=== PATIENT | female | born 1995 | race Caucasian/White ===

== ENCOUNTER 2020-02-07 05:38 | Observation (INO) ==
--- NOTE | 2020-02-02 11:16 | Anesthesiology Consultation ---
Date of Service February 02, 2020 Assessment & Plan Chart Review Chart Review: Acceptable Risk for Surgery and Patient NOT seen in Pre Admission Testing Consults Requested none ASA ASA1 Proposed Anesthesia Anesthesia Type: General Regional History Surgery Operation Date: 02/07/20 07:00 Proposed Procedures p Open Reduction Internal Fixation Malleolus Fracture, - Harrison Parrish MD s Tibial Intramedullary Nail Right Leg - Harrison Parrish MD Height/Weight Height: 5 ft 7.5 in Weight: 68.039 kg Allergies Allergy/AdvReac Type Severity Reaction Status Date / Time No Known Allergies Allergy Unverified 02/02/20 09:03 Medications Home Medications Medication Instructions Recorded Confirmed Last Taken acetaminophen [Tylenol Extra 1,000 mg PO QID PRN 01/29/20 02/02/20 01/28/20 22:00 Strength] multivitamin 1 tab PO QAM 01/29/20 02/02/20 01/28/20 enoxaparin [Lovenox] 40 mg SUBCUT BID 02/02/20 02/02/20 Unknown Past Medical History Medical History Fracture, tibia RT TIBIA/ANKLE FRACTURE (CURRENT INJURY) Hypothyroidism "VERY MILD" (TAKES NO MEDICATIONS) BEING MONITORED FROM PCP Exercise / Class Metabolic Activity 1 > 8 Run/Swim/Ski/Tennis Past Family History Family History Other No significant family history Past Surgical History Surgical History No significant past surgical history Past Anesthesia History No Hx of Anesthesia Complications and No Family Hx of Anesthesia Complications History of PONV No Hx of PONV and No Hx of Motion Sickness Social History Smoking Status: Never smoker Do You Dip or Chew Tobacco: No Hx Alcohol Use: No Hx Substance Use: No
[2020-02-07] MEDS ORDERED: CEFAZOLIN 2000MG 2,000 MG/15 ML SYR IV SCH (06:00)
[2020-02-07] MEDS ORDERED: LR 15ML/HR IV SCH (06:00)
[2020-02-07] MEDS ORDERED: LIDOCAINE HCL 2% 2 ML VIAL/AMP(20MG/ML) INFIL ONE (06:30)
[2020-02-07] MEDS ORDERED: PROPOFOL IV EMULSION 10 MG/ML 20 ML VIAL IV ONE ×2 (06:30→09:18)
[2020-02-07] MEDS ORDERED: GLYCOPYRROLATE 0.2 MG/ML VIAL ONE (06:30)
[2020-02-07] MEDS ORDERED: ONDANSETRON INJ 2 MG/ML 2 ML VIAL ONE (06:30)
[2020-02-07] MEDS ORDERED: ROCURONIUM BROMIDE 10 MG/ML 5 ML VIAL IV ONE (06:30)
[2020-02-07] MEDS ORDERED: DEXAMETHASONE SOD INJ 4 MG/ML VIAL ONE (06:30)
[2020-02-07] MEDS ORDERED: NEOSTIGMINE METHYLSULFATE 5 MG/5 ML SYR ONE (06:30)
[2020-02-07] MEDS ORDERED: fentaNYL citrate 100 MCG/2 ML VIAL ONE (06:31)
[2020-02-07] MEDS ORDERED: MIDAZOLAM HCL 1 MG/ML 2ML VIAL ONE ×2 (06:31→06:51)
[2020-02-07] MEDS ORDERED: EPINEPHrine INJ 1 MG/ML AMP ONE (06:34)
[2020-02-07] MEDS ORDERED: BUPIVACAINE 0.5 % 5 MG/1 ML MPF 30ML VIAL ONE (06:35)
[2020-02-07] MEDS ORDERED: LIDOCAINE/EPINEPHRINE 1% 20 ML VIAL ONE (06:35)
[2020-02-07] MEDS ORDERED: SODIUM CHLORIDE 0.9% INJ 10 ML VIAL ONE (06:46)
--- NOTE | 2020-02-07 06:55 | History & Physical Bridge Note ---
Date of Service February 07, 2020 History & Physical Bridge Note I have examined the patient, reviewed the History & Physical and in the interval since the performance of the History & Physical I have noted the following changes of clinical significance: no changes noted
[2020-02-07] MEDS ORDERED: ONDANSETRON INJ 2 MG/ML 2 ML VIAL IV PRN ×2 (07:15→13:26)
[2020-02-07] MEDS ORDERED: PROMETHAZINE HCL 6.25 MG in SODIUM CHLORIDE 0.9% 50 ML IV PRN (07:15)
[2020-02-07] MEDS ORDERED: ATROPINE SULFATE 0.1 MG/ML 10ML SYR IV PRN (07:15)
[2020-02-07] MEDS ORDERED: LABETALOL HCL IV 5 MG/ML 20ML IV PRN (07:15)
[2020-02-07] MEDS ORDERED: ROPIVACAINE 0.5% 5 MG/ML 30 ML VIAL ONE (07:30)
[2020-02-07] MEDS ORDERED: CEFAZOLIN 250 MG/ML 1 GM VIAL ONE (09:25)
[2020-02-07] MEDS ORDERED: CEFAZOLIN IV ONE (09:50)
[2020-02-07] MEDS ORDERED: PEDIATRIC DILUENT IV ONE (09:50)
--- NOTE | 2020-02-07 12:11 | Operative Report ---
Post Operative Report Pre & Post Diagnosis Operation Date: 02/07/20 07:00 Pre-Op Diagnosis: Right Tibia Fracture, Posterior Malleolus Fracture Post-Op Diagnosis: Right Tibia Fracture, Posterior Malleolus Fracture I identified the patient and participated in the time-out.: Yes Procedure Operation Date: 02/07/20 07:00 Actual Procedures p Open Reduction Internal Fixation Right Malleolus Fracture(Right) - Harrison Parrish MD s Tibial Intramedullary Nail Right Leg(Right) - Harrison Parrish MD Surgeon Harrison Parrish M.D. Citizenship Instructor Ericka Alan PA-C, no fellow available Estimated Blood Loss 25 Findings Consistent with Post-Op Diagnosis Specimens None Anesthesia Type General Regional Complications none Description of Procedure Patient was taken to the operating room, placed under general anesthesia, given 2gm IV Ancef prior to her initial procedure and then an additional 500mg IV Ancef prior to the IM rodding of her tibia. time out performed, prepped and draped in routine sterile fashion. I was present during the entire case and assisted with positioning, tissue retraction, fracture reduction, implantation of hardware, closure and dressings. Please see Dr. Parrish's operative report for further details. Patient was awakened and taken to the recovery room in stable condition. I attest to the content of the Intraoperative Record and any orders documented therein. Any exceptions are noted below.
--- NOTE | 2020-02-07 12:21 | Operative Report ---
Post Operative Report Pre & Post Diagnosis Operation Date: 02/07/20 07:00 Pre-Op Diagnosis: Right Tibia Fracture, Posterior Malleolus Fracture Post-Op Diagnosis: Right Tibia Fracture, Posterior Malleolus Fracture I identified the patient and participated in the time-out.: Yes Procedure Operation Date: 02/07/20 07:00 Actual Procedures p Open Reduction Internal Fixation Right Malleolus Fracture(Right) - Harrison Parrish MD s Tibial Intramedullary Nail Right Leg(Right) - Harrison Parrish MD Surgeon Harrison Parrish MD Inserting Machine Operator Ericka Alan PA-C, no fellow available Estimated Blood Loss 25 Findings Consistent with Post-Op Diagnosis Specimens None Drains None Anesthesia Type General Regional Complications none Disposition Accompanied Patient To Recovery: No Disposition: Recovery Room Indications Patient is 24 years old. She sustained a fracture of her right tibia proximally 1 week ago playing volleyball. This is a oblique fracture of the distal third of the tibia with a component extending into the ankle joint posterior malleolus nondisplaced. Proximal fibular fracture. Upon presentation she had fracture blisters and swelling. Surgery was delayed about 5 days to allow the swelling to subside and blisters to heal. She was seen in the office yesterday. Her fracture blisters are largely resolved and no new blisters have occurred. Her swelling is diminished and skin wrinkles are present. An ultrasound was done to rule out DVT which was negative. She is on Lovenox. Last dose was Thursday evening. Description of Procedure Informed consent obtained. Patient identified. She identified the operative site as of the right leg. I marked with my initials. A preop surgical timeout was performed and a preop dose of IV antibiotics was given. She was taken to the operating room positioned prone after administration of the general anesthetic and nerve block. A tourniquet was applied to her thigh. The right leg was pre-scrubbed and then prepped and draped in usual sterile fashion. DVT prophylaxis with early mobility and Lovenox. Mechanical devices. Bony prominences were inspected and padded. Bone foam was inserted underneath her ankles. Her knees were padded. Limb exsanguinated with the Esmarch. Tourniquet inflated 250 mmHg. A incision just posterior to the fibula was made about 10 cm in length. This began at the level of the ankle joint and proceeded proximally. Blunt dissection was performed down to subcutaneous tissues. Transversing veins were cauterized. The sural nerve was identified preserved and protected. The fascia posterior to the peroneal tendons was opened in line with the incision. The peroneals were retracted anterior and the flexor hallucis longus fascia was opened on its lateral aspect and the muscle was retracted medialward to expose the posterior tibia. Cautery was used proximally to identify the apex of the fracture site which was anatomically aligned. I used a hypodermic needle to identify the ankle joint fluoroscopically and I also placed a pin into the fracture to hold it reduced. I then introduced a guidepin for the 4.5 cannulated screws and adjusted it x2 to the appropriate position as distal as possible. This was overreamed and a screw with washer was inserted providing excellent purchase. The first screw was lateral and inserted a second screw in a likewise fashion more medial. These were a unicortical screws with short thread lengths crossing the fracture site. The hardware was in good position and the fracture was anatomically reduced. Tourniquet was let down after 50 minutes of inflation. Meticulous hemostasis was performed without significant bleeding. Copious irrigation was performed. The skin was closed with 3-0 Vicryl and a 4-0 Monocryl subcuticular stitch completely buried. This was then covered with a sterile OpSite and the sterile field was broken down. She was turned to the supine position. The surgeon and railway yard assistant re-scrubbed reprepped the ankle and prepped and draped again. The circulating nurse and back table remained sterile. The OpSite was removed. Another timeout was performed and another dose of IV antibiotics was given. She had a Landeros catheter inserted which was then removed at the end of the case. Bony prominences again inspected and padded. The tourniquet was not inflated. A midline longitudinal incision was made over the patellar tendon. I initially split the patellar tendon longitudinally based upon what I felt was the proper injury site which turned out to be a little bit more medial in the patella block to me from proper positioning. I then made a medial parapatellar incision but did not open the ankle joint. I then re-identified the correct starting point and inserted the guidepin. This was overreamed. The guide rashawn was then inserted. The fracture was difficult to reduce anatomically and closed fashion despite several attempts. I then went ahead and made a 5 cm incision over the fracture site centered over the lateral crest of the tibia. The fascia was incised and without any significant periosteal stripping other than what was needed I was able to insert an alligator clamp across the fracture site just length rotation and angulation for a near anatomic reduction and held this clamped in place. The guide rashawn was then passed down to the level of the distal screws confirmed in biplanar fluoroscopy. I then started reaming at size 9.5 and proceeded up to size 12.5 with good cortical chatter from 10.5 mm on. Fluoroscopy guidance was utilized. The clamp remained in place. The rashawn measured 345. I elected to proceed with a 330 mm rashawn so that there was no chance of the rashawn being proud. The rashawn was inserted under hand power and finished off with a mallet until is properly seated in the AP and lateral planes. Using the proximal interlocking jig to screws were inserted 1 dynamic one static. A 15 mm end cap was added and the proximal apparatus was removed. 2 distal medial to lateral and 1 distal anterior to posterior interlocking screws were inserted using the perfect [place] technique taking care to dissect down to the level of the fascia and and in particular anteriorly protect the surrounding structures with a hemostat. Furnace Filler fluoroscopic images were obtained at the knee fracture site and ankle demonstrating anatomic alignment of the fractures and good positioning of the hardware without complication. Wounds irrigated with sterile saline. The percutaneous incisions were closed with 2-0 and 3-0 Vicryl and viktor. The distal incision was closed with 2-0 Vicryl and viktor. The distal incision was made out of the direct zone of her fracture blisters. The proximal incision was closed with #1 Vicryl for the patellar tendon and peritenon. 2-0 Vicryl for the skin and a 4-0 Monocryl subcuticular stitch. Leg was cleaned with wet and dry sponges. There is no significant swelling. Based upon fracture alignment to the rotation was felt to be anatomic. Xeroform 4 x 4's ABD cast padding Gallo wrap applied. She was awakened from anesthesia without difficulty taken to the cart room in stable condition there were no specimens or complications. Counts were correct blood loss is estimated to be 25 cc. At the conclusion the operation I spoke to her father informed him my findings and gave postoperative instructions. She will be nonweightbearing for 6 weeks and will be able to do range of motion as tolerated. We will begin her Lovenox the morning after surgery. A Synthes nail 11 mm in diameter by 330 mm in length was inserted with 2 proximal interlocking screws and 3 distal interlocking screws. The clamp was removed at the end of the case and the alignment remained anatomic. I attest to the content of the Intraoperative Record and any orders documented therein. Any exceptions are noted below.
[2020-02-07] MEDS: HYDROmorphone INJ 1 MG/ML SYRINGE IV PRN ×4 (12:25→12:40)
--- NOTE | 2020-02-07 12:59 | Anesthesiology Progress Note ---
Date of Service February 07, 2020 Anesthesia Post Procedure Vital Signs Vital Signs: Temp Pulse Pulse Resp BP BP Pulse Ox 02/07/20 12:55 88 18 122/66 100 02/07/20 12:45 87 13 126/73 100 02/07/20 12:35 95 H 16 124/74 99 02/07/20 12:25 104 H 27 H 136/84 100 02/07/20 12:15 105 H 16 133/72 100 02/07/20 12:06 36.8 C 117 H 21 115/79 100 02/07/20 06:34 37.2 C 99 H 20 134/89 100 02/07/20 06:13 37.1 C 109 H 20 126/80 99 Pain Intensity Right Hip: Pain Intensity: 2 Transfer of Care Handoff Completed per policy Notes Mental Status: alert / awake / arousable Patient Amnestic to Procedure: Yes Nausea / Vomiting: adequately controlled Pain: adequately controlled Airway Patency, RR, SpO2: stable & adequate BP & HR: stable & adequate Hydration State: stable & adequate Anesthetic Complications: no major complications apparent
[2020-02-07] MEDS ORDERED: bisacodyL 10 MG SUPP PR PRN (13:26)
[2020-02-07] MEDS ORDERED: MAGNESIUM HYDROXIDE SUSP 30 ML UDC PO PRN (13:26)
[2020-02-07] MEDS ORDERED: HYDROmorphone INJ 0.5 MG/0.5 ML SYR IV PRN (13:26)
[2020-02-07] MEDS ORDERED: DiphenhydrAMINE HCL 50 MG/ML VIAL IV PRN (13:26)
[2020-02-07] MEDS ORDERED: OXYCODONE HCL IR 5 MG TAB (IMMEDIATE RELEASE) PO PRN (13:26)
[2020-02-07] MEDS ORDERED: METOCLOPRAMIDE HCL INJ 5 MG/ML 2 ML VIAL IV PRN (13:26)
[2020-02-07] MEDS ORDERED: NALOXONE HCL 0.4 MG/1 ML VIAL/CARP IV PRN (13:26)
--- NOTE | 2020-02-07 14:05 | Fluoroscopy Report ---
FL tibia/fibula RT 2V CLINICAL HISTORY: RT ORIF TIBIAL NAIL COMPARISON STUDY: Right ankle 01/29/2020. FLUOROSCOPY TIME: 3 minutes and 13 seconds. FINDINGS: 8 fluoroscopic spot images of the right tibia/fibula were submitted. There is an intramedul william rashawn with proximal and distal interlocking screws traversing the tibial fracture. There is near a natomic alignment. There are also 2 screws through the posterior malleolus. Proximal fibular fracture is also noted. IMPRESSION: Status post internal fixation of the tibial fracture. There is near-anatomic alignment. T he hardware appears intact. ACT 112: Negative or not required by law. Electronically signed by: Parish Hart M.D. 02/07/2020 2:04 PM
[2020-02-07] MEDS: ACETAMINOPHEN 500 MG TAB PO SCH ×2 (14:09→21:15)
[2020-02-07] MEDS: KETOROLAC 30 MG/ML VIAL IV SCH ×2 (14:10→21:15)
[2020-02-07] MEDS: SODIUM CHLORIDE 0.9% 1000ML 1,000 ML IV SCH (15:54)
--- NOTE | 2020-02-07 17:15 | Orthopedic Progress Note ---
Date of Service February 07, 2020 Assessment & Plan (1) Fracture of tibia and fibula: POD 0 - s/p IM rodding right tibia with Dr. Shivani CORTEZ RLAdriane, use crutches at all times PT/OT tomorrow Regular diet as ordered Ice and elevate right lower extremity for swelling and pain. Pain medication as prescribed. Will discuss findings with Dr. Parrish. Her foot is numb but expected with regional blocks. Will re-eval in AM. All questions answered. Call with questions. (2) Closed fracture of posterior malleolus: POD 0 - s/p ORIF posterior malleolus fracture right ankle with Dr. Shivani BOSWELLE, use crutches at all times PT/OT tomorrow Regular diet as ordered Ice and elevate right lower extremity for swelling and pain. Pain medication as prescribed. Will discuss findings with Dr. Parrish. Her foot is numb but expected with regional blocks. Will re-eval in AM. All questions answered. Call with questions. Admission and Anticipated Discharge Date Admission Date: February 07, 2020 Subjective Patient feeling well. No complaints of pain. Has had some lunch, tolerating regular diet. States that she still feels like her foot is numb. Physical Exam Physical Exam: Exam of right leg: Dressings clean and dry, intact. Right foot diminished sensation with light touch dorsal and plantar. Distal pulses 1+. Unable to wiggle toes. Foot pump in place. Results & Data ([facility]) Vital Signs (Past 12 Hours) Vital Signs Temp Pulse Pulse Resp BP BP Pulse Ox 02/07/20 16:20 36.5 C 96 H 16 108/69 99 02/07/20 15:31 36.9 C 99 H 16 107/70 98 02/07/20 14:19 36.2 C L 97 H 16 116/72 96 02/07/20 13:47 36.4 C L 100 H 16 119/73 100 02/07/20 13:20 36.9 C 104 H 14 115/69 100 02/07/20 13:05 37.0 C 88 14 115/67 100 02/07/20 12:55 88 18 122/66 100 02/07/20 12:45 87 13 126/73 100 02/07/20 12:35 95 H 16 124/74 99 02/07/20 12:25 104 H 27 H 136/84 100 02/07/20 12:15 105 H 16 133/72 100 02/07/20 12:06 36.8 C 117 H 21 115/79 100 02/07/20 06:34 37.2 C 99 H 20 134/89 100 02/07/20 06:13 37.1 C 109 H 20 126/80 99 (1) Fracture of tibia and fibula Encounter type: initial encounter Fracture type: closed Laterality: right Qualified Code(s): S82.201A - Unspecified fracture of shaft of right tibia, initial encounter for closed fracture; S82.401A - Unspecified fracture of shaft of right fibula, initial encounter for closed fracture (2) Closed fracture of posterior malleolus Encounter type: initial encounter Laterality: right Qualified Code(s): S82.391A - Other fracture of lower end of right tibia, initial encounter for closed fracture
[2020-02-07] MEDS: CEFAZOLIN 1000MG 1,000 MG/7.5 ML SYR IV SCH ×2 (18:04→23:27)
[2020-02-07] MEDS: DOCUSATE SODIUM 100 MG CAP PO SCH (21:15)
[2020-02-08] MEDS: TRAMADOL HCL 50 MG TABLET PO PRN ×2 (00:33→13:03)
[2020-02-08] MEDS: KETOROLAC 30 MG/ML VIAL IV SCH ×3 (02:02→13:38)
[2020-02-08] MEDS: SODIUM CHLORIDE 0.9% 1000ML 1,000 ML IV SCH (02:07)
[2020-02-08] MEDS: ACETAMINOPHEN 500 MG TAB PO SCH ×2 (06:08→13:37)
[2020-02-08] MEDS ORDERED: MULTIVITAMIN TAB PO SCH (09:00)
[2020-02-08] MEDS ORDERED: ENOXAPARIN INJ 30 MG/0.3 ML SYR SQ SCH (09:00)
[2020-02-08] MEDS: DOCUSATE SODIUM 100 MG CAP PO SCH (09:08)
--- NOTE | 2020-02-08 10:24 | Progress Notes ---
DATE: 02/08/2020 She is doing well. No problems are reported. Her numbness and tingling have resolved. Her pain is well controlled with medication. She is afebrile. Her vital signs are stable. Urine output is adequate. Dorsalis pedis 1+. Sensation is intact for dorsum and plantar aspect of the foot and toes. She has mild swelling. She can flex and extend her toes. She has 4+ to 5-/5 strength throughout which might be limited by her bandage. This includes ankle plantar flexion, dorsiflexion; toe plantar flexion, dorsiflexion and inversion and eversion of the foot. She has no significant discomfort with movement. She is status post ORIF of a posterior malleolus fracture of the right ankle and an intramedullary rashawn for a distal third fracture of the right tibia. PLAN: Her Lovenox is restarted. She will have PT today. Provided that her pain control is adequate and she functions well with physical therapy, she can be discharged this afternoon. She will follow up with us on Thursday. If there are any problems in the meantime in terms of severe pain, swelling, tingling, numbness, any other problems or questions, let us know. If she has any other problems, she will call the office, . Leave the dressings on. Keep clean and dry. I instructed her on some exercises to do. Quad sets, leg raises, ankle pumps, toe and ankle and knee flexion and extension exercises. Nonweightbearing on the right leg with crutches or walker. Medication soares, she will take pain medicine Tylenol, Ultram, stool softener and her Lovenox. No NSAIDs.
--- NOTE | 2020-02-08 10:25 | Discharge Summary ---
Date of Service February 08, 2020 Discharge Data Consultations 02/07/20 13:26 Consult Case Management - Discharge Planning Routine Procedures Performed Operation Date: 02/07/20 07:00 Actual Procedures p Open Reduction Internal Fixation Right Malleolus Fracture(Right) - Harrison Parrish MD s Tibial Intramedullary Nail Right Leg(Right) - Harrison Parrish MD Hospital Course (1) Fracture of tibia and fibula: Patient was admitted to the [facility] after undergoing an open reduction internal fixation of her right ankle posterior malleolus fracture and an IM rodding of her right tibia fracture with Dr. Parrish on February 07, 2020. Surgery was performed with general anesthesia and peripheral nerve blocks. She was given IV Ancef for surgical prophylaxis one dose prior to her surgery and was continued for 24 hours after her procedure. Intraoperative x-rays were obtained and confirmed reduction of fractures and hardware placement. She tolerated the procedure well without any intraoperative complications. Postoperatively she was allowed out of bed, nonweightbearing right lower extremity with the assistance of crutches. She was allowed out of bed as tolerated with assistance of crutches or a walker. She tolerated regular diet after her surgery. She did not develop any postoperative fevers, chills, nausea, vomiting, lightheadedness or dizziness. Her peripheral nerve blocks were off in the middle the night in her pain was controlled with IV Toradol, oxycodone, tramadol and oral Tylenol. Her pain was well controlled during her inpatient stay. Vital signs were stable. She was placed on Lovenox 30 mg twice a day to start on February 08, 2020 at 9 AM for DVT prophylaxis. She was seen by physical therapy as well as occupational therapy and was deemed safe for home at discharge. Case management consult was placed for disposition and at home needs. She requested a shower chair and a prescription for shower chair was provided. She was told by the window caser that this would not be covered by her insurance so she is going to call local DME suppliers or possibly get one on line. She will maintain nonweightbearing without difficulty with the assistance of crutches. Due to her pain being controlled, tolerating a regular diet and deemed safe and physical therapy, she was discharged to her home with her father in stable condition. Follow-up appointments have been scheduled. All questions were answered. Discharge instructions were reviewed. (2) Closed fracture of posterior malleolus: See above Discharge Instructions as per EMR
== END 2020-02-08 14:29 | disposition home or self-care (01) ==
LOC: ASU 05:38 → 3E 05:38